=== PATIENT | female | born 1960 | race African-American/Black ===

== ENCOUNTER 2017-07-21 02:12 | Emergency (ER) | payer BC ==
[2017-07-21 03:19] LABS: Basophils % (Auto) 0.3 % (0.0-1.8); Eosinophils # (Auto) 0.1 K/mm3 (0.0-0.4); Eosinophils % (Auto) 0.7 % (0.0-4.3); Hematocrit 40.1 % (30.3-42.9); Hemoglobin 13.5 gm/dl (10.1-14.3); Lymphocytes # (Auto) 2.2 K/mm3 (1.2-5.4); Lymphocytes % (Auto) 22.4 % (13.4-35.0); Mean Corpuscular HGB Conc 34 % (30-34); Mean Corpuscular Hemoglobin 29 pg (28-32); Mean Corpuscular Volume 86 fl (79-97); Monocytes # (Auto) 0.5 K/mm3 (0.0-0.8); Monocytes % (Auto) 5.4 % (0.0-7.3); Platelet Count 305 K/mm3 (140-440)
[2017-07-21 04:05] LABS: Albumin 4.7 g/dL (3.9-5); Calcium 8.9 mg/dL (8.4-10.2)
--- NOTE | 2017-07-21 08:14 | Cat Scan Report ---
FINAL REPORT EXAM: CT HEAD/BRAIN WO CON HISTORY: dizzy TECHNIQUE: CT of the head was performed. No intravenous contrast was administered. PRIORS: None. FINDINGS: There is no evidence of intracranial hemorrhage. There is no edema, mass effect or midline shift. There are no abnormal extra-axial fluid collections. The ventricles are appropriate for brain volume. There is no skull fracture seen. The visualized aspects of the sinuses and mastoids are clear. IMPRESSION: There is no acute intracranial abnormality identified.
[2017-07-21] MEDS ORDERED: ANTIVERT PO ONE (09:54)
--- NOTE | 2017-07-21 10:03 | Emergency Department Report ---
ED Dizziness HPI - General Chief Complaint: Dizziness Stated Complaint: DIZZNESSS Time Seen by Provider: 07/21/17 07:30 Source: patient Mode of arrival: Ambulatory Limitations: No Limitations - History of Present Illness MD Complaint: dizziness, other (vertigo) -: Last night Timing: intermittent Description: "room spinning" Severity: mild, moderate Improves With: remaining still Worsens With: movement, position Associated Symptoms: denies: ataxia, chest pain, confusion, cough, diaphoresis, fever/chills, loss of appetite, malaise, rash, seizure, shortness of breath, syncope, weakness - Related Data Previous Rx's Medication Instructions Recorded Last Taken Type Ketorolac [Toradol] 10 mg PO BID PRN #30 tablet 09/03/15 Unknown Rx traMADol [Ultram] 50 mg PO Q6HR PRN #20 tablet 09/03/15 Unknown Rx Meclizine [Antivert] 25 mg PO TID PRN #15 tablet 07/21/17 Unknown Rx Allergies Allergy/AdvReac Type Severity Reaction Status Date / Time aspirin Allergy Itching Verified 07/21/17 02:52 morphine Allergy Itching Verified 09/03/15 00:21 ED Review of Systems ROS: Stated complaint: DIZZNESSS Other details as noted in HPI Comment: All other systems reviewed and negative Constitutional: denies: diaphoresis, fever, malaise Eyes: denies: eye discharge, vision change ENT: denies: dental pain, hearing loss, epistaxis Respiratory: denies: cough, orthopnea, shortness of breath, SOB with exertion, SOB at rest, stridor Cardiovascular: denies: chest pain, palpitations, dyspnea on exertion, orthopnea , edema, syncope, paroxysmal nocturnal dyspnea Gastrointestinal: nausea. denies: abdominal pain, vomiting, diarrhea, constipation, hematemesis, melena, hematochezia Neurological: vertigo. denies: headache, weakness, numbness, paresthesias, confusion, abnormal gait ED Past Medical Hx - Past Medical History Hx Diabetes: Yes Hx Arthritis: Yes (OSTEO) Additional medical history: FIBROMYALGIA / DISK COMPRESSIONS /SCIATICA / CARPAL TUNNEL, PUD, - Surgical History Additional Surgical History: HYSTERECTOMY, RIGHT ELBOW TENDON, RIGHT CARPAL TUNNEL SYNDROME, - Social History Smoking Status: Never Smoker Substance Use Type: None - Medications Home Medications: Home Medications Medication Instructions Recorded Confirmed Last Taken Type Ketorolac [Toradol] 10 mg PO BID PRN #30 tablet 09/03/15 Unknown Rx traMADol [Ultram] 50 mg PO Q6HR PRN #20 tablet 09/03/15 Unknown Rx Meclizine [Antivert] 25 mg PO TID PRN #15 tablet 07/21/17 Unknown Rx ED Physical Exam - General Limitations: No Limitations General appearance: alert, in no apparent distress, anxious - Head Head exam: Present: atraumatic, normocephalic - Eye Eye exam: Present: PERRL, EOMI, nystagmus (horizontal nystagmus) - ENT ENT exam: Present: normal exam, normal orophraynx - Neck Neck exam: Present: normal inspection. Absent: tenderness, meningismus - Respiratory Respiratory exam: Present: normal lung sounds bilaterally. Absent: respiratory distress, wheezes, rales, rhonchi, stridor, chest wall tenderness, accessory muscle use, decreased breath sounds, prolonged expiratory - Cardiovascular Cardiovascular Exam: Present: regular rate, normal rhythm, normal heart sounds - GI/Abdominal GI/Abdominal exam: Present: soft. Absent: distended, tenderness, guarding, rebound, rigid, mass, bruit, pulsatile mass - Extremities Exam Extremities exam: Present: normal inspection, normal capillary refill. Absent: pedal edema, calf tenderness - Back Exam Back exam: Present: normal inspection. Absent: CVA tenderness (L), muscle spasm , paraspinal tenderness, vertebral tenderness - Neurological Exam Neurological exam: Present: alert, oriented X3, CN II-XII intact, normal gait, other (no cerebellar findings). Absent: motor sensory deficit - Skin Skin exam: Present: warm. Absent: cyanosis, diaphoretic, erythema, urticaria, petechiae, pallor, abrasion, ecchymosis ED Course Vital Signs 07/21/17 07/21/17 07/21/17 02:45 05:24 06:00 Temperature 97.4 F L 97.9 F Pulse Rate 57 L 60 Pulse Rate [ Lying] Pulse Rate [ Sitting] Pulse Rate [ Standing] Respiratory 18 16 Rate Blood Pressure 114/54 118/60 Blood Pressure 113/59 [Left] Blood Pressure [Lying] Blood Pressure [Sitting] Blood Pressure [Standing] O2 Sat by Pulse 98 99 97 Oximetry 07/21/17 07/21/17 07/21/17 07:00 08:11 08:24 Temperature Pulse Rate 54 L Pulse Rate [ Lying] Pulse Rate [ Sitting] Pulse Rate [ Standing] Respiratory Rate Blood Pressure 108/46 114/57 Blood Pressure [Left] Blood Pressure [Lying] Blood Pressure [Sitting] Blood Pressure [Standing] O2 Sat by Pulse 96 99 Oximetry 07/21/17 08:25 Temperature Pulse Rate Pulse Rate [ 53 L Lying] Pulse Rate [ 61 Sitting] Pulse Rate [ 64 Standing] Respiratory Rate Blood Pressure Blood Pressure [Left] Blood Pressure 110/53 [Lying] Blood Pressure 130/54 [Sitting] Blood Pressure 110/56 [Standing] O2 Sat by Pulse Oximetry ED Medical Decision Making - Lab Data Result diagrams: 07/21/17 03:10 07/21/17 03:10 - EKG Data -: EKG Interpreted by Me EKG shows normal: sinus rhythm - EKG Data Interpretation: other (no acute ischemic change) - Radiology Data Radiology results: report reviewed - Medical Decision Making Symptoms are positional with head movement with some nausea consistent with peripheral vertigo patient is not orthostatic normal H&H negative head CT with no evidence of posterior circulation dysfunction noted at this time normal neuro exam no cerebellar findings stable for outpatient follow-up Critical care attestation.: If time is entered above; I have spent that time in minutes in the direct care of this critically ill patient, excluding procedure time. ED Disposition Clinical Impression: Vertigo Disposition: DC-01 TO HOME OR SELFCARE Is pt being admited?: No Condition: Stable Instructions: Vertigo (ED), Dizziness (ED) Additional Instructions: See her doctor return if new or alarming symptoms or call 911 Prescriptions: Meclizine [Antivert] 25 mg PO TID PRN #15 tablet PRN Reason: Vertigo Referrals: JACQUELINE BENZ MD [Primary Care Provider] - 3-5 Days Time of Disposition: 10:04
[2017-07-21 10:37] VITALS: BP 121/49
== END 2017-07-21 10:30 | disposition home or self-care (01) ==
LOC: ED 02:12
DX: R42 Dizziness and giddiness (principal); E11.9 Type 2 diabetes mellitus without complications
CPT/HCPCS: 36415; 70450; 80053; 84484; 85025; 93005; 93010

== ENCOUNTER 2021-07-19 09:03 | Emergency (ER) | payer BC ==
[2021-07-19 09:32] VITALS: BP 114/63
[2021-07-19 11:23] LABS: Basophils % (Auto) 0.3 % (0.0-1.8); Eosinophils # (Auto) 0.3 K/mm3 (0.0-0.4); Eosinophils % (Auto) 5.2 % (0.0-4.3); Hematocrit 36.4 % (30.3-42.9); Hemoglobin 11.8 gm/dl (10.1-14.3); Lymphocytes # (Auto) 1.3 K/mm3 (1.2-5.4); Lymphocytes % (Auto) 21.4 % (13.4-35.0); Mean Corpuscular HGB Conc 32 % (30-34); Mean Corpuscular Volume 85 fl (79-97); Monocytes # (Auto) 0.4 K/mm3 (0.0-0.8); Monocytes % (Auto) 6.3 % (0.0-7.3); Platelet Count 376 K/mm3 (140-440); Red Blood Count 4.27 M/mm3 (3.65-5.03); Red Cell Distribution Width 14.9 % (13.2-15.2)
[2021-07-19 11:41] LABS: Albumin 4.3 g/dL (3.9-5); Calcium 9.9 mg/dL (8.4-10.2)
[2021-07-19] MEDS ORDERED: HYDROcodone/ACETAMINOPHEN 5-325 MG TAB PO ONE (12:16)
--- NOTE | 2021-07-19 13:13 | Emergency Department Report ---
ED Extremity Problem HPI - General Chief complaint: Extremity Injury, Lower Stated complaint: POST OP RT LEG COMPLICATIONS Time Seen by Provider: 07/19/21 11:56 Source: patient Mode of arrival: Ambulatory Limitations: No Limitations - History of Present Illness Initial comments: This is a 60-year-old female status post right knee replacement on June 30, 2021 presents to ED complaining of right-sided calf pain x2 to 3 days. Patient states that her surgery went well and she had follow-up last Monday to have a staple sticking out of her knee. Patient says she has been walking fine with a cane. Patient states that she was worried about a blood clot so she decided to come into the ED to be evaluated. She states that pain is throbbing in nature localized to her calf and sometimes behind her knee. She denies any chest pain, shortness of breath, fever, chills, nausea or vomiting or abdominal pain. Patient also complaining of a mild erythematous flat itching rash to her lower legs that began 2 to 3 days ago. Patient states she was going to go to urgent care but while she is here wanted to have it looked at. MD Complaint: extremity pain Location: right Severity scale (0 -10): 6 Worsens with: weight bearing, palpation Associated Symptoms: denies other symptoms - Related Data Previous Rx's Medication Instructions Recorded Last Taken Type Ketorolac [Toradol] 10 mg PO BID PRN #30 tablet 09/03/15 Unknown Rx traMADoL [Ultram] 50 mg PO Q6HR PRN #20 tablet 09/03/15 Unknown Rx Meclizine [Antivert] 25 mg PO TID PRN #15 tablet 07/21/17 Unknown Rx Cyclobenzaprine [Flexeril] 10 mg PO QHS PRN #20 tablet 07/19/21 Unknown Rx Hydrocortisone 1% [Hydrocortisone 1 applicatio TP TID #1 tube 07/19/21 Unknown Rx 1% CREAM] predniSONE [Deltasone] 40 mg PO QDAY #10 tab 07/19/21 Unknown Rx Allergies Allergy/AdvReac Type Severity Reaction Status Date / Time aspirin Allergy Itching Verified 07/21/17 02:52 morphine Allergy Itching Verified 09/03/15 00:21 ED Review of Systems ROS: Stated complaint: POST OP RT LEG COMPLICATIONS Other details as noted in HPI ED Past Medical Hx - Past Medical History Hx Diabetes: Yes Hx Arthritis: Yes (OSTEO) Additional medical history: FIBROMYALGIA / DISK COMPRESSIONS /SCIATICA / CARPAL TUNNEL, PUD, - Surgical History Additional Surgical History: HYSTERECTOMY, RIGHT ELBOW TENDON, RIGHT CARPAL TUNNEL SYNDROME, - Social History Smoking Status: Never Smoker Substance Use Type: None - Medications Home Medications: Home Medications Medication Instructions Recorded Confirmed Last Taken Type Ketorolac [Toradol] 10 mg PO BID PRN #30 tablet 09/03/15 Unknown Rx traMADoL [Ultram] 50 mg PO Q6HR PRN #20 tablet 09/03/15 Unknown Rx Meclizine [Antivert] 25 mg PO TID PRN #15 tablet 07/21/17 Unknown Rx Cyclobenzaprine [Flexeril] 10 mg PO QHS PRN #20 tablet 07/19/21 Unknown Rx Hydrocortisone 1% [Hydrocortisone 1 applicatio TP TID #1 tube 07/19/21 Unknown Rx 1% CREAM] predniSONE [Deltasone] 40 mg PO QDAY #10 tab 07/19/21 Unknown Rx ED Physical Exam - General Limitations: No Limitations General appearance: alert, in no apparent distress - Eye Eye exam: Present: normal appearance - Neck Neck exam: Present: normal inspection, full ROM - Respiratory Respiratory exam: Present: normal lung sounds bilaterally, chest wall tenderness. Absent: respiratory distress, wheezes, rales - GI/Abdominal GI/Abdominal exam: Present: soft, distended - Extremities Exam Extremities exam: Present: normal inspection, full ROM, tenderness (Steri-Strips noted on the right knee. Wound well healing), normal capillary refill, joint swelling (Mild erythema of the right knee with some swelling as a result of recent i surgery. Nontender to palpation), calf tenderness - Back Exam Back exam: Present: normal inspection - Neurological Exam Neurological exam: Present: alert, CN II-XII intact, normal gait (With a cane) - Psychiatric Psychiatric exam: Absent: anxious - Skin Skin exam: Present: warm, dry, rash (Mild erythematous noted right knee.). Absent: cyanosis, vesicles, pallor, abrasion ED Course Vital Signs 07/19/21 09:24 Temperature 98.2 F Pulse Rate 84 Respiratory 21 Rate Blood Pressure 114/63 [Right] O2 Sat by Pulse 95 Oximetry ED Medical Decision Making - Lab Data Result diagrams: 07/19/21 11:01 07/19/21 11:01 - Radiology Data Radiology results: report reviewed DUPLEX DOPPLER LOWER EXTREMITY VEINS, RIGHT INDICATION / CLINICAL INFORMATION: Calf /thigh pain. TECHNIQUE: Duplex doppler imaging was performed through the veins of the right lower extremity using venous compression and other maneuvers. COMPARISON: None available. FINDINGS: RIGHT COMMON FEMORAL VEIN: Negative. RIGHT FEMORAL VEIN: Negative. RIGHT POPLITEAL VEIN: Negative. RIGHT CALF VEINS: Negative. ADDITIONAL FINDINGS: None. IMPRESSION: 1. No sonographic evidence for DVT in the right lower extremity. Signer Name: Danni Barrera MD Signed: 07/19/2021 1:32 PM Workstation Name: [id number] Transcribed By: JS Dictated By: DANNI BARRERA MD Electronically Authenticated By: DANNI BARRERA MD Signed Date/Time: 07/19/21 6252 - Medical Decision Making This 60-year-old female presenting with knee pain status post surgery with concerns of DVT. Labs are within normal limits. Doppler study shows no evidence of DVT report above. Discussed with patient to keep her appointment with her orthopedic surgeon for her postop visit. Patient's vital signs normal throughout her ED stay. Patient was given prednisone and Benadryl in the ED to do allergic rash Patient understood instructions and states she will follow-up. Critical care attestation.: If time is entered above; I have spent that time in minutes in the direct care of this critically ill patient, excluding procedure time. ED Disposition Clinical Impression: Myalgia, Knee pain, Allergic dermatitis Disposition: 01 HOME / SELF CARE / HOMELESS Is pt being admited?: No Does the pt Need Aspirin: No Condition: Stable Instructions: Musculoskeletal Pain, Joint Pain, [id number] Additional Instructions: Make sure to follow up with the primary care physician as discussed. Take all your medications as you've been prescribed. If you have any worsening symptoms or develop new symptoms please return to ED immediately. Referrals: PRIMARY CAREMD [Primary Care Provider] - 3-5 Days [facility] [Outside] - 3-5 Days [facility] [Outside] - 3-5 Days Forms: Work/School Release Form(ED) Time of Disposition: 14:50
[2021-07-19 13:30] LABS: Bilirubin,Urine NEG (Negative); Blood,Urine MOD (Negative); Color,Urine Yellow (Yellow); Mucus,Urine FEW /HPF; Urobilinogen,Urine < 2.0 mg/dL (<2.0)
--- NOTE | 2021-07-19 13:36 | Vascular Lab Report ---
DUPLEX DOPPLER LOWER EXTREMITY VEINS, RIGHT INDICATION / CLINICAL INFORMATION: Calf /thigh pain. TECHNIQUE: Duplex doppler imaging was performed through the veins of the right lower extremity using venous comp ression and other maneuvers. COMPARISON: None available. FINDINGS: RIGHT COMMON FEMORAL VEIN: Negative. RIGHT FEMORAL VEIN: Negative. RIGHT POPLITEAL VEIN: Negative. RIGHT CALF VEINS: Negative. ADDITIONAL FINDINGS: None. IMPRESSION: 1. No sonographic evidence for DVT in the right lower extremity. Signer Name: Jaswinder Patel MD Signed: 07/19/2021 1:32 PM Workstation Name: [id number]
[2021-07-19] MEDS ORDERED: predniSONE 20 MG TAB PO ONE (14:46)
[2021-07-19] MEDS ORDERED: diphenhydrAMINE 25 MG CAP PO ONE (14:46)
== END 2021-07-19 15:18 | disposition home or self-care (01) ==
LOC: ED 09:03
DX: M79.10 Myalgia, unspecified site (principal); M25.569 Pain in unspecified knee; L23.9 Allergic contact dermatitis, unspecified cause; E11.9 Type 2 diabetes mellitus without complications; Z88.6 Allergy status to analgesic agent; Z88.5 Allergy status to narcotic agent
CPT/HCPCS: 36415; 80053; 81001; 82140; 85025; 87040; 99284